=== PATIENT | male | born 1960 | race Caucasian/White ===

== ENCOUNTER 2023-12-11 19:42 | Emergency (ER) | payer OTHER, SELFPAY ==
[2023-12-11 19:46] VITALS: BP 119/71
[2023-12-11 21:00] VITALS: BP 124/88
--- NOTE | 2023-12-11 21:09 | ED.MUSCINJ ---
HPI-Injury
General
Chief Complaint: Musculo-Skeletal Complaint
Source: patient
Exam Limitations: none
Time Seen by Provider: 12/11/23 20:59
History of Present Illness-Injury
Is this injury a work related problem?: No
Is pt an associate of [facility]/[place]?: No
Initial Injury comments:
This is a 63 year old male that comes in with c/o left foot pain. States that he has a freezer that is top mounted over his Refrig. States that he was in the freezer and 6-7 pound chicken fell out onto his foot. State that he did not fall but has
pain on the left foot with bruising. Denies any fever, chills, nausea, vomiting, diarrhea, headache, dizziness.
Past History
Past History
ED Past Medical History: HTN, Hypercholesterolemia, NIDDM and Psychiatric (depression)
ED Past Surgical History: Appendectomy, Cholecystectomy and Tonsilectomy
Social History
Tobacco: Non-smoker
Alcohol: None
Drug: None
Personal: Single
Living: with family (Sister)
Employment: Employed
Review of Systems
Review of Systems
All Other Systems: ROS reviewed and negative except as documented in HPI and ROS
Constitutional: Reports no symptoms; Denies fever or chills
EENT: Reports no symptoms
Respiratory: Reports no symptoms
Cardiac: Reports no symptoms
ABD/GI: Reports no symptoms; Denies abdominal pain, nausea, vomiting or diarrhea
: Reports no symptoms
Musculoskeletal: Reports other (left foot swelling and pain)
Skin: Reports no symptoms
Neurological: Reports no symptoms; Denies dizzy or headache
Psychiatric: Reports no symptoms
Musculoskeletal Injury Exam
Musculoskeletal Injury Exam
Left Lateral Foot:
Pain with Movement?: Mild
Tender to palpation?: Mild
Soft tissue swelling?: Mild
External deformity and angulation?: None
Joint effusion?: None
Contusion?: Mild
Hematoma-local bleeding into tissue?: None
Strain- Sprain- Tear (Connective tissue injury)?: None
Crepitus with movement?: No
Joint instability?: No
Malalignment/deformity?: No
Range of motion: Full
Distal skin color and temperature: normal-warm & good color
Capillary Refill: normal
Normal distal neurovascular exam?: Yes
Phy Exam
General Physical Exam
General Presentation: well appearing and no apparent distress
General age: appears stated age
General Skin: warm and dry
General Habitus: obese
General Mental: alert
General Hydration: appears well hydrated
Eye Exam
Eye Exam: EOMI
Musculoskeletal Exam
Musculoskeletal Exam: full ROM, no edema and other (Left lateral dorsal hematoma noted. Tenderness over the 5th metatarsal. )
Skin Exam
Skin Exam: normal color, warm/dry and no petechia
Psychiatric Exam
Psychiatric Exam: normal mood/affect
Injury Course
Orders/Labs/Results
Orders:
Orders
12/11/23 19:48
CR Foot - Left Min 3 Views Urgent
Comment:
Reason For Exam: injury
12/11/23 21:08
Ortho Boot Left- Treatment ONCE
Short or tall?: Short
12/11/23 21:17
Crutches-Treatment ONCE
MDM/Problems Addressed
Differential Diagnosis Includes:
Foot Fracture,
MDM/Problems Addressed:
This is a 63 year old male that comes in with c/o left foot pain after dropping a frozen chicken on his foot.
Will get X-ray. Explained that there is a fracture of the 5th Proximal metatarsal. Will place patient in a Orthopedic boot and have him follow up the content management specialist. Patient to elevated, Ice and use Tylenol as needed for pain. Return with any
concerns.
Chronic conditions affecting care:
NA
Acute Exacerbation and/or Progression of Chronic Illness:
NA
*Radiology
Radiology exam reviewed: preliminary read by ED provider (Distal 5th metatarsal fracture. ) and radiology read reviewed (Foot- No acute abnormalities. )
*Pulse Oximetry
Patient hypoxic: no
*EKG
Interpreted by ED Provider?: NA
Rate: EKG- N/A
*[employer] Interpretation
Rate: [employer]- N/A
*Critical Care Note
Total Time (30-74mins, 75-104mins- exclusive of procedures): Not Applicable
ED Attending Note
-
Portions of this chart may have been created with voice recognition software.� Occasional wrong word or��sound alike� substitutions may have occurred due to the inherent limitations of voice recognition software.
Discharge Plan
Departure
Patient Disposition: Home (Routine Discharge)
Date of Disposition: 12/11/23
Time of Disposition: 21:17
Patient with high blood pressure during this ER visit?: No
Condition: Good
Covid-19: Not Applicable
Discharge Problem:
Foot fracture, left
Instructions: Foot Fracture (DC), How to use crutches, RICE Therapy
Prescriptions:
No Action
citalopram 20 MG/10 ML solution
20 mg PO DAILY
lisinopril 20 MG tablet
20 mg PO DAILY
metformin 500 MG tablet extended release 24 hr
500 mg PO BID
tamsulosin 0.4 MG capsule
0.4 mg PO DAILY Qty: 10 0RF
aspirin 325 MG tablet
325 mg PO DAILY 0RF
Referrals:
Neri Hoffman MD [Active] - Follow up in 2-3 days
Activity Restrictions/Additional Instructions:
As discussed, you have a fracture of the 5th metatarsal. Please use the boot when you are up walking around. Rest, ice and elevated. Follow up with the clinical account specialist for further evaluation and treatment. Tylenol or Ibuprofen as needed for
pain. IF YOU HAVE ANY OTHER CONCERNS PLEASE RETURN TO THE EMERGENCY ROOM.
Interventions
Interventions:
*Risk Screen - Suicide Last Done: 12/11/23 19:46
*General Assessment Last Done: 12/11/23 19:46
*Neglect/Abuse Screening Last Done: 12/11/23 19:46
*Nursing Disposition Last Done: 12/11/23 22:05
ED-Musculoskeletal Assessment Last Done: 12/11/23 21:00
Discharge Date and Time
Discharge Date/Time: 12/11/23 22:06
Print Language: ARGENTINE
== END 2023-12-11 22:06 | disposition home or self-care (01) ==
LOC: EMR 19:42
PROVIDERS: EMERGENCY PHYSICIAN Emergency Medicine; FAMILY PHYSICIAN Family Medicine
DX: S92.352A Displaced fracture of fifth metatarsal bone, left foot, initial encounter for closed fracture (principal); W20.8XXA Other cause of strike by thrown, projected or falling object, initial encounter
CPT/HCPCS: 99283; 73630